=== PATIENT | male | born 1980 | race Caucasian/White ===

== ENCOUNTER 2022-04-22 00:39 | Day surgery (SDC) | payer OTHER, SELFPAY ==
[2022-04-15 14:18] VITALS: BMI 24.3
--- NOTE | 2022-04-21 09:51 | WPDANESEPPF ---
Anes - Initial Pre Proc Eval Procedure: Operation Date: 04/22/22 08:45 Proposed Procedures p Colonoscopy - Hector Ibrahim MD Date/Time: 04/21/22 09:51 Surgeon: Hector Ibrahim MD Pre Op Diagnosis: diverticulitis, abdominal pain, weightloss Patient Data Age: 41 Gender: M Height: 1.8 m Weight: 79 kg Allergies Allergy/AdvReac Type Severity Reaction Status Date / Time No Known Allergies Allergy Unknown Verified 04/22/22 07:30 Home Medications Medication Instructions Recorded Confirmed Type alprazolam 1 mg tablet (Xanax) 1 mg PO QID PRN anxiety #90 tabs 04/08/22 04/15/22 Rx omeprazole 20 mg capsule,delayed See Rx Instructions .Route 04/08/22 04/15/22 Rx release .COMPLEX #60 caps quetiapine 100 mg tablet See Rx Instructions .Route 04/08/22 04/15/22 Rx .COMPLEX #120 tabs Lactobacillus 1 cap PO DAILY 04/15/22 04/15/22 History acidophilus-Bifidobac.animalis 2.5 billion cell capsule (Daily Probiotic) calcium polycarbophil 625 mg 1,250 mg PO DAILY 04/15/22 04/15/22 History tablet (FiberCon) multivitamin with minerals-folic 1 tablet PO DAILY 04/15/22 04/15/22 History acid 0.4 mg tablet Patient hx anesthesia problems: none Family hx anesthesia problems: none Results Review: All pre-operative results and documents have been reviewed as part of the pre-operative evaluation. [facility] Past Medical History Medical History Anxiety Hyperglycemia Hyperlipidemia MEJIA (nonalcoholic steatohepatitis) Family History Family History Grandparent Family history of malignant neoplasm Social History Social History Smoking status: Current some day smoker Tobacco type: cigarettes Second hand tobacco smoke exposure: Yes Alcohol intake: never Substance use: never Substance use type: does not use Living arrangements: with family Gender identity (if verbalized by the patient): Male Spiritual care concerns: No Agree to blood products: Yes Anes - Eval Final PreProcedure Day of Procedure 04/21/22 09:51 Patient weight: normal Heart: regular rate and rhythm Lungs: clear to auscultation and normal air movement Airway: Mallampati scale class II Neurological: alert and oriented Last oral intake: >/= 8 hours ASA classification: III Emergent: no Anesthetic plan: proceed Anesthesia type and monitoring: general GIVS and standard monitoring Results Review: All pre-operative results and documents have been reviewed as part of the pre-operative evaluation. Informed Consent: The patient's anesthetic plan and its attendant risks and benefits were discussed with the patient/family/POA. Questions were solicited and answers provided to the satisfaction of the patient/family/POA.
--- NOTE | 2022-04-22 06:51 | PM.HPGS ---
History of Present Illness History of Present Illness Consent: Risks, benefits, and alternatives have been discussed and questions answered. Patient agrees to proceed with procedure. Chief complaint: diverticulitis, abdominal pain, weightloss Narrative: Anuel Narayanan Jr. is a 41 year old male Who has had a change in bowel habits. Recently, he has loose stools after eating a meal. He also has lost about 8 lb. He saw blood in his stools on 1 occasion. He has had lower abdominal pains intermittently. His father was recently diagnosed with colon cancer. Review of Systems Review of Systems: All systems reviewed & are unremarkable except as noted in HPI and below PMFSH Past Medical History Medical History Anxiety Hyperglycemia Hyperlipidemia MEJIA (nonalcoholic steatohepatitis) Family History Family History Grandparent Family history of malignant neoplasm Social History Social History Smoking status: Current some day smoker Tobacco type: cigarettes Second hand tobacco smoke exposure: Yes Alcohol intake: never Substance use: never Substance use type: does not use Living arrangements: with family Gender identity (if verbalized by the patient): Male Spiritual care concerns: No Agree to blood products: Yes Meds Home Medications and Allergies Home Medications Medication Instructions Recorded Confirmed Type alprazolam 1 mg tablet (Xanax) 1 mg PO QID PRN anxiety #90 tabs 04/08/22 04/15/22 Rx omeprazole 20 mg capsule,delayed See Rx Instructions .Route 04/08/22 04/15/22 Rx release .COMPLEX #60 caps quetiapine 100 mg tablet See Rx Instructions .Route 04/08/22 04/15/22 Rx .COMPLEX #120 tabs Lactobacillus 1 cap PO DAILY 04/15/22 04/15/22 History acidophilus-Bifidobac.animalis 2.5 billion cell capsule (Daily Probiotic) calcium polycarbophil 625 mg 1,250 mg PO DAILY 04/15/22 04/15/22 History tablet (FiberCon) multivitamin with minerals-folic 1 tablet PO DAILY 04/15/22 04/15/22 History acid 0.4 mg tablet Allergies Allergy/AdvReac Type Severity Reaction Status Date / Time No Known Allergies Allergy Unknown Verified 04/22/22 07:30 Exam Const: General: alert Orientation/consciousness: patient oriented x3 Resp: Auscultation: clear to auscultation bilaterally Cardio: Rhythm: regular rhythm GI: GI Palp: Yes Soft to palpation and No Tenderness to palpation present (GI) Neuro: General: patient oriented x3 Assessment and Plan Assessment and plan (1) Change in bowel habits: Code(s): R19.4 - Change in bowel habit Status: Acute Assessment and Plan: Colonoscopy with possible biopsy or polypectomy or cautery or injection of substances. (2) Weight loss: Code(s): R63.4 - Abnormal weight loss Status: Acute
[2022-04-22 07:31] VITALS: BP 105/83; PULSE 70; RESP 20; TEMP 36.3; O2SAT 100
[2022-04-22] MEDS: LACTATED RINGERS 1,000 ML 150 ML IV CONT (07:39)
[2022-04-22 08:55] VITALS: BP 117/77; PULSE 60; RESP 20; O2SAT 99
[2022-04-22 09:05] VITALS: BP 114/77; PULSE 62; RESP 22; O2SAT 100
[2022-04-22 09:15] VITALS: BP 118/78; PULSE 60; RESP 24; O2SAT 100
== END 2022-04-22 09:21 | disposition home or self-care (01) ==
PROVIDERS: PCP Family Medicine; Visit Provider Internal Medicine Gastroenterology
PROC: 0DJD8ZZ Inspection of Lower Intestinal Tract, Via Natural or Artificial Opening Endoscopic (ICD-10-PCS; CPT 45378; principal; 2022-04-22 08:45)
DX: R10.30 Lower abdominal pain, unspecified (principal); Z80.0 Family history of malignant neoplasm of digestive organs; R19.4 Change in bowel habit; K92.1 Melena; R63.4 Abnormal weight loss; F17.210 Nicotine dependence, cigarettes, uncomplicated; F41.9 Anxiety disorder, unspecified; R73.9 Hyperglycemia, unspecified; E78.5 Hyperlipidemia, unspecified; K75.81 Nonalcoholic steatohepatitis (NASH)
CPT/HCPCS: 45380; 88305; J2704; J7120

== ENCOUNTER 2025-04-10 01:37 | Day surgery (SDC) | payer OTHER, SELFPAY ==
[2025-03-31 13:42] VITALS: BMI 26.6
--- OUTSIDE RECORDS SUMMARY | 2025-04-10 01:40 | XMS_ITS | Clinical Summary ---
Author Organization [facility] Address [address] [place] [id number] Care Team Providers Care Cone Tender Name Role Phone Unavailable Primary Care Provider Unavailabl e Social History Tobacco Use Types Packs/Day Years Used Date Smoking Tobacco: Never Assessed Sex and Gender Information Value Date Recorded Sex Assigned at Not on file Legal Sex Male 8:13 PM CDT Gender Identity Not on file Sexual Orientation Not on file Last Filed Vital Signs Vital Sign Reading Time Taken Comments Blood Pressure 135/83 07/13/2012 1:33 PM [facility] Pulse 87 07/13/2012 1:33 PM [facility] Temperature - - Respiratory Rate - - Oxygen Saturation - - Inhaled Oxygen Concentration - - Weight 79.4 kg (175 lb) 07/13/2012 1:33 PM [facility] [facility] Height 180.3 cm (5' 11) 07/13/2012 1:33 PM [facility] [facility] Body Mass Index 24.41 07/13/2012 1:33 PM [facility] Plan of Treatment Health Maintenance Due Date Last Done Comments Annual Physical 1985 Hepatitis C 2000 DTaP, Tdap and Td Vaccines ( 1 - Tdap) 2001 Hepatitis B Vaccines (1 of 3 - 19+ 3-dose series) 2001 HPV Vaccines (1 - 3-dose SCD M series) 2009 COVID-19 Vaccine (2023-2 5 season) 2024 Meningococcal B Vaccine Aged Out No l onger eligible based on patient's age to complete this topic Meningococcal Vaccine Aged Out No susan michael eligible based on patient's age to complete this topic Pneumococcal Vaccine: Pediat rics (0 to 5 Years) and At-Risk Patients (6 to 49 Years) Aged Out No longer eligible b ased on patient's age to complete this topic RSV Immunizations Under 20 Months Aged Out No longer eligible based on patient's age to complete this topic Insurance
--- OUTSIDE RECORDS SUMMARY | 2025-04-10 01:41 | XMS_ITS | Clinical Summary ---
Author Organization [facility] Address [address] [place] [address] Care Team Providers Care Fare Enforcement Officer Name Role Phone Unavailable Primary Care Provider Unavailabl e Source Comments [facility],non-owned Affiliates and Associated Physician Practices is amultiple site organization consisting of ambulatory clinics and hospital sitesin [place], [place], [place] and [place]. This disclosure is being madepursuant to the Care Everywhere program and may not contain all information available regarding this patient. Last updated 18.[facility] Identiv Social History Tobacco Use Types Packs/Day Years Used Date Smoking Tobacco: Never Assessed Sex and Gender Information Value Date Recorded Sex Assigned at Not on file Legal Sex Male 10:35 AM CDT Gender Identity Not on file Sexual Orientation Not on file Plan of Treatment Health Maintenance Due Date Last Done Comments LIPID TESTING 1982 HIV SCREENING 1997 HEPATITIS C SCREENING 07/18/2000 DTAP/TDAP/TD VACCINES (1 - Tdap) 2001 HEPATITIS B VACCINE (1 of 3 - 19+ 3-dose series) 2001 HPV VACCINE (1 - 3-dose SCDM series) 2009 COVID-19 VACCINE (1 - 2023-2 5 season) 2024 DEPRESSION SCREENING 08/07/2024 INFLUENZA VACCINE (#1) 2025 ZOSTER VACCINE (1 of 2) 2032 HIB VACCINE Aged Out No longer eligi ble based on patient's age to complete this topic MENINGOCOCCAL (Group B) VACC INE SHARED DECISION-MAKING Aged Out No longer eligibl e based on patient's age to complete this topic MENINGOCOCCAL GROUPS A/C/Y/W VACCINE Aged Out No longer eligible b ased on patient's age to complete this topic PNEUMOCOCCAL VACCINE Aged Out No long er eligible based on patient's age to complete this topic Insurance [employer]
[2025-04-10 08:57] VITALS: BP 113/68; PULSE 73; RESP 18; TEMP 36.1; O2SAT 100
[2025-04-10] MEDS: LACTATED RINGERS 1,000 ML 150 ML IV CONT (09:06)
--- NOTE | 2025-04-10 09:31 | P.PNAN_ITS ---
Anes - Initial Pre Proc Eval Procedure: Operation Date: 04/10/25 10:00 Proposed Procedures p Diagnostic Colonoscopy - Mohsen Moran MD Date/Time: 04/10/25 09:31 Surgeon: Mohsen Moran MD Pre Op Diagnosis: Melena Patient Data Age: 44 Gender: M Height: 1.8 m Weight: 85.1 kg Last Vital Signs Temp 97 F L 04/10/25 08:57 Pulse 73 04/10/25 08:57 Resp 18 04/10/25 08:57 BP 113/68 04/10/25 08:57 Pulse Ox 100 04/10/25 08:57 O2 Del Method Room Air 04/10/25 08:57 Allergies Allergy/AdvReac Type Severity Reaction Status Date / Time No Known Allergies Allergy Unknown Verified 04/10/25 08:56 Home Medications ?Medication ?Instructions ?Recorded ?Confirmed ?Type omeprazole 20 mg capsule,delayed See Rx Instructions . Route 10/18/24 04/10/25 Rx release .COMPLEX #180 caps fluoxetine 40 mg capsule (Prozac) 40 mg PO DAILY #90 c aps 02/11/25 04/10/25 Rx alprazolam 1 mg tablet 1 mg PO .TID-QID PRN anxiety #100 03/14/25 03/31/25 Rx tabs quetiapine 100 mg tablet 100 mg PO QHS #90 tabs 03/2804/10/25 Rx Patient hx anesthesia problems: none Family hx anesthesia problems: none Results Review: All pre-operative results and documents have been reviewed as part of the pre- operative evaluation. [facility] Past Medical History Medical History GERD (gastroesophageal reflux disease) Insomnia MEJIA (nonalcoholic steatohepatitis) Hyperlipidemia Hyperglycemia Anxiety Family History Family History Grandparent Family history of malignant neoplasm Social History Social History Social History: 06/03/24 patient is not confident with medical forms Smoking packs per day: 0.5 Smoking cigarettes per day: 10.0 Years smoked: 7 Smoking pack-years: 3.50 Smoking status: Current every day smoker Tobacco type: cigarettes Second hand tobacco smoke exposure: Yes Alcohol intake: never Substance use: never Substance use type: does not use Do You Feel Safe in your Home?: Yes Lack of Transportation: No Lack of Food: Never True Current Housing: I Have Housing Concerned About Future Housing: No Difficulty Paying Gas/Electric Bills: No Difficulty Paying for Meds: No Currently Unemployed: No Education: High School Diploma/GED Difficulty w/ Childcare or Family Care: No Living arrangements: with family Occupation/Education: occupation Gender identity (if verbalized by the patient): Male Spiritual care concerns: No Agree to blood products: Yes Anes - Eval Final PreProcedure Day of Procedure 04/10/25 09:31 Patient weight: normal Heart: regular rate and rhythm Lungs: clear to auscultation Airway: Mallampati scale class II Neurological: alert and oriented Last oral intake: >/= 8 hours ASA classification: III Emergent: no Anesthetic plan: proceed Anesthesia type and monitoring: general GIVS and standard monitoring Results Review: All pre-operative results and documents have been reviewed as part of the pre- operative evaluation. Informed Consent: The patient's anesthetic plan and its attendant risks and benefits were discussed with the patient/family/POA. Questions were solicited and answers provided to the satisfaction of the patient/family/POA.
--- NOTE | 2025-04-10 10:09 | P.HP_ITS ---
H&P: HPI History of Present Illness Date/Time: 04/10/25 10:09 Chief Complaint: Family history of colon cancer-rectal bleeding Narrative: This patient has family history of colorectal cancer. his father was jewels gnosed with it In his 60s. In addition the patient has been having intermittent passage of bright red blood per rectum. he is here for colonoscopy. Review of Systems Review of Systems: All systems reviewed & are unremarkable except as noted in HPI and below PMFSH Past Medical History Medical History GERD (gastroesophageal reflux disease) Insomnia MEJIA (nonalcoholic steatohepatitis) Hyperlipidemia Hyperglycemia Anxiety Family History Family History Grandparent Family history of malignant neoplasm Social History Social History Social History: 06/03/24 patient is not confident with medical forms Smoking packs per day: 0.5 Smoking cigarettes per day: 10.0 Years smoked: 7 Smoking pack-years: 3.50 Smoking status: Current every day smoker Tobacco type: cigarettes Second hand tobacco smoke exposure: Yes Alcohol intake: never Substance use: never Substance use type: does not use Do You Feel Safe in your Home?: Yes Lack of Transportation: No Lack of Food: Never True Current Housing: I Have Housing Concerned About Future Housing: No Difficulty Paying Gas/Electric Bills: No Difficulty Paying for Meds: No Currently Unemployed: No Education: High School Diploma/GED Difficulty w/ Childcare or Family Care: No Living arrangements: with family Occupation/Education: occupation Gender identity (if verbalized by the patient): Male Spiritual care concerns: No Agree to blood products: Yes Meds Home Medications and Allergies Home Medications ?Medication ?Instructions ?Recorded ?Confirmed ?Type omeprazole 20 mg capsule,delayed See Rx Instructions . Route 10/18/24 04/10/25 Rx release .COMPLEX #180 caps fluoxetine 40 mg capsule (Prozac) 40 mg PO DAILY #90 c aps 02/11/25 04/10/25 Rx alprazolam 1 mg tablet 1 mg PO .TID-QID PRN anxiety #100 03/14/25 03/31/25 Rx tabs quetiapine 100 mg tablet 100 mg PO QHS #90 tabs 03/2804/10/25 Rx Allergies Allergy/AdvReac Type Severity Reaction Status Date / Time No Known Allergies Allergy Unknown Verified 04/10/25 08:56 Vital Signs Vital Signs - 24 hr 04/10/25 08:57 Temperature 97 F L Pulse Rate 73 Respiratory Rate 18 Blood Pressure 113/68 Pulse Oximetry 100 Oxygen Delivery Room Air Exam Const: General: cooperative and healthy appearing Resp: Effort & Inspection: normal respiratory effort and able to speak in complete sentences Auscultation: clear to auscultation bilaterally Cardio: Rate: regular rate Rhythm: regular rhythm GI: Inspection: normal to inspection GI Palp: No No hepatosplenomegaly present Auscultation: normal bowel sounds Rectal Exam: deferred Skin: General skin exam: normal color Psych: Appearance: grossly normal Mental Status: mental status grossly normal Assessment and Plan Assessment and plan (1) Family history of colon cancer: Code(s): Z80.0 - Family history of malignant neoplasm of digestive organs Status: Acute Assessment and Plan: The patient is deemed a good candidate for the procedure. Consent signed. Will proceed.
[2025-04-10] MEDS: SIMETHICONE ORAL SUSPENSION 20 MG/0.3 ML 30 ML BOTTLE 0.6 ML IRRIGATION (10:19)
[2025-04-10 10:36] VITALS: BP 116/78; PULSE 65; RESP 24; O2SAT 100
[2025-04-10 10:46] VITALS: BP 123/83; PULSE 59; RESP 13; O2SAT 100
[2025-04-10 10:56] VITALS: BP 118/84; PULSE 60; RESP 19; O2SAT 100
== END 2025-04-10 11:00 | disposition home or self-care (01) ==
PROVIDERS: PCP Nurse Practitioner Family; Referring Provider Nurse Practitioner Family; Visit Provider Internal Medicine Gastroenterology
PROC: 0DJD8ZZ Inspection of Lower Intestinal Tract, Via Natural or Artificial Opening Endoscopic (ICD-10-PCS; CPT 45378; principal; 2025-04-10 10:00)
DX: K62.5 Hemorrhage of anus and rectum (principal); K64.8 Other hemorrhoids; Z80.0 Family history of malignant neoplasm of digestive organs; F17.210 Nicotine dependence, cigarettes, uncomplicated
CPT/HCPCS: 45378; J2003; J2704; J7120